=== PATIENT | female | born 1985 | race Caucasian/White ===

== ENCOUNTER 2023-11-21 00:39 | Day surgery (SDC) | payer BC, SELFPAY ==
[2023-11-21 11:17] VITALS: BP 130/88; PULSE 68; RESP 18; TEMP 36.9; O2SAT 100; BMI 25.0
[2023-11-21] MEDS: LACTATED RINGERS 1,000 ML 150 ML IV CONT ×2 (11:36→13:08)
--- NOTE | 2023-11-21 11:53 | WPDANESEPPF ---
Anes - Initial Pre Proc Eval Procedure: Operation Date: 11/21/23 12:30 Proposed Procedures p Colonoscopy - Bernard Post MD Date/Time: 11/21/23 11:53 Surgeon: Bernard Post MD Pre Op Diagnosis: Melena Patient Data Age: 38 Gender: F Height: 1.63 m Weight: 66.2 kg Last Vital Signs Temp 98.4 F 11/21/23 11:17 Pulse 68 11/21/23 11:17 Resp 18 11/21/23 11:17 BP 130/88 11/21/23 11:17 Pulse Ox 100 11/21/23 11:17 O2 Del Method Room Air 11/21/23 11:17 Allergies Allergy/AdvReac Type Severity Reaction Status Date / Time No Known Allergies Allergy Verified 11/21/23 11:21 Home Medications Medication Instructions Recorded Confirmed Type ergocalciferol (vitamin D2) 1,250 1,250 mcg PO WEEKLY 09/05/22 11/06/23 History mcg (50,000 unit) capsule spironolactone 100 mg tablet 100 mg PO DAILY 09/05/22 11/21/23 History levonorgestrel 21 mcg/24 hr (up to 1 device intrauterine ONCE 09/12/23 11/06/23 History 8 years) 52 mg intrauterine device (Mirena) levocetirizine 5 mg tablet (Xyzal) 5 mg PO DAILY 11/06/23 11/06/23 History Patient hx anesthesia problems: none Family hx anesthesia problems: none Results Review: All pre-operative results and documents have been reviewed as part of the pre-operative evaluation. [facility] Past Medical History Medical History Acne Encounter for IUD insertion 03/04/20 Mirena insertion Headache Surgical History Surgical History History of ankle surgery (~2001) History of wisdom tooth extraction Family History Family History Mother Hypertension Family history of elevated blood lipids Sibling Patient's brother is in good health Father Family history of elevated blood lipids Hypertension Heart disease Grandparent Breast cancer paternal grandmother Social History Social History (Updated 09/12/23 @ 10:31 by Xochitl Lopez MA) Smoking status: Never smoker Second hand tobacco smoke exposure: No Alcohol intake: current Drinks per week: 2 Alcohol use details: occasional Substance use: never Substance use type: does not use Do You Feel Safe in your Home?: Yes Lack of Transportation: No Lack of Food: Never True Current Housing: I Have Housing Concerned About Future Housing: No Difficulty Paying Gas/Electric Bills: No Difficulty Paying for Meds: No Currently Unemployed: No Education: Bachelor's Degree Difficulty w/ Childcare or Family Care: No Living arrangements: with family Occupation/Education: occupation Gender identity (if verbalized by the patient): Female Sexual Orientation (if Verbalized by the Patient): Straight or Heterosexual Spiritual care concerns: No Anes - Eval Final PreProcedure Day of Procedure 11/21/23 11:53 Patient weight: normal Heart: regular rate and rhythm Lungs: clear to auscultation Airway: Mallampati scale class II Neurological: alert and oriented Last oral intake: >/= 8 hours ASA classification: II Emergent: no Anesthetic plan: proceed Anesthesia type and monitoring: general GIVS and standard monitoring Results Review: All pre-operative results and documents have been reviewed as part of the pre-operative evaluation. Informed Consent: The patient's anesthetic plan and its attendant risks and benefits were discussed with the patient/family/POA. Questions were solicited and answers provided to the satisfaction of the patient/family/POA.
--- NOTE | 2023-11-21 13:10 | PM.HPGS ---
History of Present Illness History of Present Illness Consent: Risks, benefits, and alternatives have been discussed and questions answered. Patient agrees to proceed with procedure. Chief complaint: Melena Narrative: Analia Conte is a 38 year old female with rectal bleeding, never had colonoscopy Review of Systems Review of Systems: All systems reviewed & are unremarkable except as noted in HPI and below PMFSH Past Medical History Medical History (Updated 11/21/23 @ 13:10 by Bernard Post MD) Acne Encounter for IUD insertion 03/04/20 Mirena insertion Headache Rectal bleeding Surgical History Surgical History History of ankle surgery (~2001) History of wisdom tooth extraction Family History Family History Mother Hypertension Family history of elevated blood lipids Sibling Patient's brother is in good health Father Family history of elevated blood lipids Hypertension Heart disease Grandparent Breast cancer paternal grandmother Social History Social History (Updated 09/12/23 @ 10:31 by Xochitl Lopez MA) Smoking status: Never smoker Second hand tobacco smoke exposure: No Alcohol intake: current Drinks per week: 2 Alcohol use details: occasional Substance use: never Substance use type: does not use Do You Feel Safe in your Home?: Yes Lack of Transportation: No Lack of Food: Never True Current Housing: I Have Housing Concerned About Future Housing: No Difficulty Paying Gas/Electric Bills: No Difficulty Paying for Meds: No Currently Unemployed: No Education: Bachelor's Degree Difficulty w/ Childcare or Family Care: No Living arrangements: with family Occupation/Education: occupation Gender identity (if verbalized by the patient): Female Sexual Orientation (if Verbalized by the Patient): Straight or Heterosexual Spiritual care concerns: No Meds Home Medications and Allergies Home Medications Medication Instructions Recorded Confirmed Type ergocalciferol (vitamin D2) 1,250 1,250 mcg PO WEEKLY 09/05/22 11/06/23 History mcg (50,000 unit) capsule spironolactone 100 mg tablet 100 mg PO DAILY 09/05/22 11/21/23 History levonorgestrel 21 mcg/24 hr (up to 1 device intrauterine ONCE 09/12/23 11/06/23 History 8 years) 52 mg intrauterine device (Mirena) levocetirizine 5 mg tablet (Xyzal) 5 mg PO DAILY 11/06/23 11/06/23 History Allergies Allergy/AdvReac Type Severity Reaction Status Date / Time No Known Allergies Allergy Verified 11/21/23 11:21 Vital Signs Vital Signs - 24 hr 11/21/23 11:17 Temperature 98.4 F Pulse Rate 68 Respiratory Rate 18 Blood Pressure 130/88 Pulse Oximetry 100 Oxygen Delivery Room Air Exam Const: General: comfortable and no acute distress HENMT: Face/Nose/Sinus: Normal nares present Eyes: General: appearance normal, both eyes and all related structures Neck: Neck: no JVD Resp: Auscultation: clear to auscultation bilaterally Cardio: Rate: regular rate Rhythm: regular rhythm GI: Inspection: non-distended GI Palp: Yes Soft to palpation Skin: General skin exam: normal color Neuro: General: gait normal Speech: normal speech Extrem: General: normal to inspection Psych: Mental Status: mental status grossly normal Assessment and Plan Assessment and plan (1) Rectal bleeding: Code(s): K62.5 - Hemorrhage of anus and rectum Status: Acute Assessment and Plan: colonoscopy
[2023-11-21 13:11] VITALS: BP 108/86; PULSE 85; RESP 19; O2SAT 100
[2023-11-21 13:21] VITALS: BP 108/66; PULSE 89; RESP 22; O2SAT 100
[2023-11-21 13:31] VITALS: BP 100/62; PULSE 84; RESP 14; O2SAT 100
== END 2023-11-21 13:38 | disposition home or self-care (01) ==
PROVIDERS: PCP Physician Assistant; Visit Provider Internal Medicine Gastroenterology
PROC: 0DJD8ZZ Inspection of Lower Intestinal Tract, Via Natural or Artificial Opening Endoscopic (ICD-10-PCS; CPT 45378; principal; 2023-11-21 12:30)
DX: K92.1 Melena (principal); D12.2 Benign neoplasm of ascending colon; K64.8 Other hemorrhoids; K64.4 Residual hemorrhoidal skin tags
CPT/HCPCS: 45385; 88305; J2704; J7120